=== PATIENT | female | born 1960 | race Caucasian/White ===

== ENCOUNTER 2018-01-31 18:09 | Observation (INO) | payer BC, SELFPAY ==
[2018-01-31 19:08] LABS: #Eosinphils 0.2 thou/uL (0.0-0.7); #Lymphocytes 2.7 thou/uL (1.20-3.40); #Monocytes 0.7 thou/uL (0.11-0.59); #Neutrophils 7.4 thou/uL (1.40-6.50); %Basophils 0.3 % (0.0-1.0); %Eosinophils 1.5 % (0.0-10.0); %Lymphocytes 24.7 % (21.0-51.0); %Neutrophils 67.5 % (42.0-75.0); Hemoglobin 14.7 g/dL (12.0-16.0); Mean Corpuscular Hemoglobin 29.9 pg (27.0-31.0); Mean Corpuscular Volume 90.5 fl (81.0-99.0); Mean Platelet Volume 7.4 fL (7.4-10.4); Platelet Count 308 thou/uL (130-400); RBC Distribution Width 12.7 % (11.5-14.5); Red Blood Cell (RBC) Count 4.91 mill/uL (4.20-5.40)
[2018-01-31 19:29] LABS: ALT (SGPT) 29 U/L (8-55); AST (SGOT) 21 U/L (5-34); Alkaline Phosphatase 106 U/L (40-150); Anion Gap 10 mmol/L (10-20); BUN (Urea Nitrogen) 21 mg/dL (9.8-20.1); Bilirubin, Total 0.3 mg/dL (0.2-1.2); Calc. Creatinine Clearance 0 mL/min (70-130); Calcium 9.5 mg/dL (7.8-10.44); Carbon Dioxide 24 mmol/L (22-29); Chloride 110 mmol/L (98-107); Estimated GFR-MDRD 81; Globulin 2.8 g/dL (2.4-3.5); Glucose 102 mg/dL (70-105); Potassium 4.1 mmol/L (3.5-5.1); Protein, Total 6.8 g/dL (6.0-8.3); Sodium 140 mmol/L (136-145)
[2018-01-31 19:48] LABS: Bilirubin Negative (Negative); Blood, Urine Small (Negative); Clarity CLOUDY (Clear); Glucose, Urine (Dipstick) Negative (Negative); Leukocyte Negative (Negative); Nitrite Negative (Negative); Protein, Urine (Dipstick) Negative (Neg-Trace); Urobilinogen 0.2 mg/dL (0.2-1.0)
[2018-01-31 19:51] LABS: Bacteria/HPF None Seen HPF (None Seen); Hyaline Casts/LPF 0-3 HYALINE CAST LPF (0-3 Hyaline); Squamous Epithelial 0-3 HPF (0-3); WBC/HPF 0-3 HPF (0-3)
[2018-01-31] MEDS ORDERED: Ketorolac Tromethamine 60 MG/2 ML VIAL ONE (21:20)
[2018-01-31] MEDS ORDERED: Ketorolac Tromethamine 30 MG/ML VIAL ONE (21:40)
[2018-01-31] MEDS ORDERED: Fentanyl 100 MCG/2 ML VIAL ONE (22:29)
[2018-01-31] MEDS ORDERED: cloNIDine 0.1 MG TAB ONE (23:03)
--- NOTE | 2018-01-31 23:18 | ULT ---
RENAL ULTRASOUND 01/31/18 HISTORY: Left flank pain. Multiple renal calculi. Multiple longitudinal and transverse images of the kidneys and bladder is obtained using a multihertz curvilinear transducer. Real time and color flow images are obtained. Images demonstrate the right kidney to be of normal contour, axis and size measuring 11.2 cm from alen e to pole. No evidence of right sided hydroureteronephrosis seen. The left kidney is severely hydronephrotic with marked dilatation of the left renal pelvis and calyce s. No evidence of a left ureteral jet seen in the urinary bladder. This is concerning for an obstruct ing left ureteral calculus. The left renal parenchyma is otherwise unremarkable. The urinary bladder is unremarkable except for absence of left ureteral jets. IMPRESSION: Left sided hydronephrosis with absent left ureteral jets. POS: BRENNON
[2018-02-01] MEDS ORDERED: Ondansetron ODT 4 MG TAB PO PRN (00:42)
[2018-02-01] MEDS ORDERED: Ondansetron HCl/PF 4 MG/2 ML Vial IVP PRN ×2 (00:42→11:39)
[2018-02-01] MEDS ORDERED: Calcium Carbonate 500 MG ChewTAB PO PRN (00:42)
[2018-02-01] MEDS ORDERED: Promethazine HCl 25 MG/ML VIAL IM/IV PRN (00:42)
[2018-02-01] MEDS ORDERED: Acetaminophen 325 MG TAB PO PRN (00:42)
[2018-02-01] MEDS ORDERED: Bisacodyl 5 MG TAB PO PRN (00:42)
[2018-02-01] MEDS ORDERED: Sodium Chloride 0.9% 1,000 ML IV SCH ×2 (00:45→01:00)
--- NOTE | 2018-02-01 00:51 | PDOC.FPRHP ---
- History of Present Illness Chief Complaint: renal colic History of Present Illness: PCP: Luanne Alanis-OOT Code Status: Full 57 yo F w/ PMH of HTN, DMII, anxiety and numerous previous nephrolithiasis with approx 6-7 previous lithotipsy precedures performed presented to the ED with cc of back/flank pain. She has had numerous obstructing stones on the past and has experienced similar symptoms before. She is aware of renal lithiasis on the left side, but they have not been an issue until yesterday. She describes the pain as the same as other episodes of renal colic and only relieved by toradol and fentanyl. She attempted to take [place] at home for pain control, but the pain did no subside. In the ED a renal US showed absence or ureteral jet in the left kidney and a ct stone protocol is pending. Urology was consulted from the ED. She had one episode of nausea, otherwise she denies diarrhea, vomiting, fever, chills, cp, sob, headache, dysuria and hematuria. ED Course: Toradol, fentanyl, clonidine - Allergies/Adverse Reactions Allergies Allergy/AdvReac Type Severity Reaction Status Date / Time No Known Drug Allergies Allergy Verified 02/01/18 01:25 - Home Medications Medication Instructions Recorded Confirmed Type Citalopram [CeleXA] 20 mg PO DAILY 02/01/18 02/01/18 History Lisinopril [Lisinopril] 02/01/18 History - History PMHx: HTN, DMII, Nephrolithiasis PSHx: Left shoulder, farzaneh, appy, hyst, csection X2, hemithyroidectomy FHx:Paternal DC, DMII, CVA. Maternal heart disease Social:Denies tobacco, social alcohol, regular marijuana use - Review of Systems General: denies: fever/chills, night sweats, fatigue Eyes: denies: eye pain, vision changes ENT: denies: nasal congestion, rhinorrhea Respiratory: denies: cough, congestion, shortness of breath Cardiovascular: denies: chest pain, palpitation, edema Gastrointestinal: reports: nausea. denies: vomiting, diarrhea, constipation, abdominal pain Genitourinary: reports: other (Flank pain). denies: dysuria Skin: denies: rashes, lesions Musculoskeletal: reports: pain. denies: stiffness, swelling, arthritis/ arthralgias Neurological: denies: numbness, syncope - Vital signs BP: 191/111 HR: 80 RR: 18 Tmax: 98.4 Pox: 97% on RA Wt: 129Kg - Physical Exam Constitutional: NAD, awake, alert and oriented HEENT: normocephalic and atraumatic, PERRLA, EOMI, conjunctiva clear, no scleral icterus, grossly normal vision, grossly normal hearing, MMM, oropharynx clear Neck: supple, FROM, trachea midline, no LAD, no JVD, no thyromegaly, no bruits Heart: RRR, normal S1/S2, no murmurs/rubs/gallops, pulses present, no edema Lungs: CTAB, no respiratory distress, good air movement, no rales/rhonchi, no wheezing Abdomen: soft, non-tender, bowel sounds present, other (No CVA tenderness) Musculoskeletal: normal structure, normal tone Neurological: no focal deficit, normal sensation Skin: no rash/lesions, capillary refill <2 seconds Heme/Lymphatic: no unusual bruising or bleeding, no petechia FMR H&P: Results - Labs Result Diagrams: 01/31/18 18:56 01/31/18 18:56 Lab results: WBC 11.0 thou/uL (4.8-10.8) H 01/31/18 18:56 Hgb 14.7 g/dL (12.0-16.0) 01/31/18 18:56 Hct 44.4 % (36.0-47.0) 01/31/18 18:56 MCV 90.5 fl (81.0-99.0) 01/31/18 18:56 Plt Count 308 thou/uL (130-400) 18 18:56 Neutrophils % 67.5 % (42.0-75.0) 18 18:56 Sodium 140 mmol/L (136-145) 01/31/18 18:56 Potassium 4.1 mmol/L (3.5-5.1) 01/31/18 18:56 Chloride 110 mmol/L (98-107) H 01/31/18 18:56 Carbon Dioxide 24 mmol/L (22-29) 01/31/18 18:56 BUN 21 mg/dL (9.8-20.1) H 01/31/18 18:56 Creatinine 0.74 mg/dL (0.6-1.1) 18 18:56 Glucose 102 mg/dL (70-105) 01/31/18 18:56 Calcium 9.5 mg/dL (7.8-10.44) 18 18:56 Total Bilirubin 0.3 mg/dL (0.2-1.2) 18 18:56 AST 21 U/L (5-34) 01/31/18 18:56 ALT 29 U/L (8-55) 01/31/18 18:56 Alkaline Phosphatase 106 U/L (40-150) 01/31/18 18:56 Serum Total Protein 6.8 g/dL (6.0-8.3) 01/31/18 18:56 Albumin 4.0 g/dL (3.5-5.0) 01/31/18 18:56 Urine Ketones Negative mg/dL (Negative) 01/31/18 19:39 Urine Blood Small (Negative) H 01/31/18 19:39 Urine Nitrite Negative (Negative) 01/31/18 19:39 Ur Leukocyte Esterase Negative (Negative) 01/31/18 19:39 Urine RBC 7-10 HPF (0-3) H 01/31/18 19:39 Urine WBC 0-3 HPF (0-3) 01/31/18 19:39 Ur Squamous Epith Cells 0-3 HPF (0-3) 01/31/18 19:39 Urine Bacteria None Seen HPF (None Seen) 01/31/18 19:39 - Radiology Interpretation US - abdomen Status: report reviewed by me (Absence of left ureteral jet flow. Left hydronephrosis) FMR H&P: A/P - Problem List (1) Nephrolithiasis Current Visit: Yes Status: Acute (2) Hydronephrosis Current Visit: Yes Status: Acute Code(s): N13.30 - UNSPECIFIED HYDRONEPHROSIS (3) HTN (hypertension) Current Visit: Yes Status: Acute Code(s): I10 - ESSENTIAL (PRIMARY) HYPERTENSION (4) DMII (diabetes mellitus, type 2) Current Visit: Yes Status: Acute (5) Anxiety Current Visit: Yes Status: Acute Code(s): F41.9 - ANXIETY DISORDER, UNSPECIFIED - Plan 1) Nephrolithiasis: Present on ct with evidence of Lt hydronephrosis, official read pending. Urology has been consulted from ED, appreciate recs -Pt will be admitted to surgical floor. Pain control with toradol and prn morphine. Zofran and phenergan for n/v. Tylenol for mild pain. Pt NPO. IVF NS @ 125mls/hr 2) Hydronephrosis: 2/2 #1. See #1 3)HTN: Home meds 4) DMII: Per pt diet controlled. CC diet after urology evaluation 5)Anxiety: Home meds 6) PPX: SCDs and pepcid for dvt and GI ppx, resepctively 7)Code status: Pt wishes to be full code Disposition/LOS: stable, </= 2 days FMR H&P: Upper Level - Pertinent history Kim Lundy is a 57 year old female with a history of recurrent calcium renal stones who presents to the ED with sudden onset left flank pain lasting several hours. She has had multiple lithotripsies in the past and saw a urologist in [place]. - Pertinent findings General: NAD HEENT: EOMI, moist mucous membranes. Heart: RRR, no MRG Lungs: CTAB Back: no CVA tenderness Extremities: moves all extremities well; no edema UA: microscopic hematuria Renal US: left hydronephrosis with absent left ureteral jets. - Plan Date/Time: 02/01/1850 She Arteaga, have evaluated this patient and agree with findings/plan as outlined by commissioner of internal revenue resident. Pertinent changes/additions are listed here. 57 year old female with recurrent calcium renal stones who presents with left obstructing ureteral stone. 1. Left obstructing ureteral stone - no evidence of infection; vitals stable - Urology consulted from ED. - IV fluids, pain control. NPO after midnight 2.Hypertension - home meds unavailable, will restart when available 3.Depression - home meds unavailable. will restart when available
[2018-02-01] MEDS: Ketorolac Tromethamine 30 MG/ML VIAL IVP PRN ×2 (01:19→14:35)
[2018-02-01 01:29] VITALS: BMI 44.5
[2018-02-01 04:50] LABS: #Eosinphils 0.2 thou/uL (0.0-0.7); #Lymphocytes 2.4 thou/uL (1.20-3.40); #Monocytes 0.5 thou/uL (0.11-0.59); #Neutrophils 4.6 thou/uL (1.40-6.50); %Basophils 0.5 % (0.0-1.0); %Eosinophils 2.4 % (0.0-10.0); %Lymphocytes 30.9 % (21.0-51.0); %Neutrophils 60.2 % (42.0-75.0); Hemoglobin 13.1 g/dL (12.0-16.0); Mean Corpuscular HGB CONC 32.9 g/dL (32.0-36.0); Mean Corpuscular Hemoglobin 29.8 pg (27.0-31.0); Mean Corpuscular Volume 90.8 fl (81.0-99.0); Mean Platelet Volume 7.3 fL (7.4-10.4); Platelet Count 261 thou/uL (130-400); RBC Distribution Width 12.7 % (11.5-14.5); Red Blood Cell (RBC) Count 4.41 mill/uL (4.20-5.40); White Blood Cell (WBC) Count 7.7 thou/uL (4.8-10.8)
[2018-02-01 05:01] LABS: Anion Gap 10 mmol/L (10-20); BUN (Urea Nitrogen) 15 mg/dL (9.8-20.1); Calc. Creatinine Clearance 191 mL/min (70-130); Calcium 8.6 mg/dL (7.8-10.44); Carbon Dioxide 26 mmol/L (22-29); Chloride 109 mmol/L (98-107); Estimated GFR-MDRD Greater than 90; Glucose 114 mg/dL (70-105); Potassium 3.7 mmol/L (3.5-5.1); Sodium 141 mmol/L (136-145)
[2018-02-01] MEDS: Sodium Chloride 0.9% 1,000 ML IV SCH ×2 (07:50→13:56)
[2018-02-01] MEDS ORDERED: Tamsulosin HCl 0.4 MG CAP PO SCH (09:00)
[2018-02-01] MEDS ORDERED: Hydrochlorothiazide 25 MG TAB PO SCH ×2 (09:00)
[2018-02-01] MEDS ORDERED: Famotidine 20 MG TAB PO SCH (09:00)
[2018-02-01] MEDS ORDERED: Citalopram 20 MG TAB PO SCH (09:00)
[2018-02-01] MEDS ORDERED: Fentanyl 100 MCG/2 ML VIAL ONE (11:53)
[2018-02-01] MEDS ORDERED: Ondansetron HCl/PF 4 MG/2 ML Vial ONE ×2 (11:53→15:23)
[2018-02-01] MEDS ORDERED: Iothalamate Meglumine 60% 50 ML VIAL FS ONE (11:57)
--- NOTE | 2018-02-01 11:59 | CT ---
PRELIMINARY REPORT/[facility]/EMERGENTY AFTER-HOURS PROCEDURE CT Abdomen and Pelvis Without Intravenous Contrast EXAM DATE/TIME: Exam ordered 02/01/2018 12:43 AM CLINICAL HISTORY: 57 years old, female; Pain; Abdominal pain; Flank; Left; Prior surgery; Patient HX: F57 presents to e d C/O l. Flank pain. HX of multiple stones, 5-6 lithotripsies for them. Stones have been up to 17mm i n diameter. Onset of pain at 2: 30pm today, severe in nature. Pt took narco at home that did not relieve SX TECHNIQUE: Axial computed tomography images of the abdomen and pelvis without intravenous contrast. Coronal refo rmatted images were created and reviewed. COMPARISON: No relevant prior studies available. FINDINGS: Lung bases: Unremarkable. No mass. No consolidation. ABDOMEN: Liver: Unremarkable. Gallbladder and bile ducts: Prior cholecystectomy. No ductal dilation. Pancreas: Unremarkable. No ductal dilation. Spleen: Unremarkable. No splenomegaly. Adrenals: Left adrenal adenoma. Kidneys and ureters: 3 mm obstructing stone in the distal left ureter causing moderate obstructive ur opathy. Nonobstructive nephrolithiasis right kidney. Stomach and bowel: No bowel wall thickening or intestinal obstruction. PELVIS: Appendix: Appendix not visualized. No evidence of appendicitis. Bladder: Unremarkable. No stones. Reproductive: Prior hysterectomy. ABDOMEN and PELVIS: Intraperitoneal space: Unremarkable. No free air. No significant fluid collection. Bones/joints: No acute fracture. No dislocation. Soft tissues: Unremarkable. Vasculature: Unremarkable. No abdominal aortic aneurysm. Lymph nodes: Unremarkable. No enlarged lymph nodes. IMPRESSION: 3 mm obstructing stone in the distal left ureter causing moderate obstructive uropathy. Thank you for allowing us to participate in the care of your patient. Dictated and Authenticated by: Tre Juárez MD 02/01/2018 12:56 AM Central Time ([place] & [place]) FINAL REPORT EMERGENCY AFTER HOURS CT ABDOMEN AND PELVIS PERFORMED WITHOUT CONTRAST ENHANCEMENT: Date: 02/01/18 HISTORY: Left flank pain. FINDINGS: The lung bases are clear. Old left rib fractures are seen. The liver, spleen, and pancreas show no focal abnormalities. Gallbladder has been removed. There is s uggestion of fatty changes of the liver. Right and left adrenal glands are normal in appearance. Right and left kidneys are normal in size. Th ere is a faint mid pole nonobstructing right renal calculus and a 2-3 mm lower pole renal calculus. O n the left side, there is left-sided hydronephrosis and hydroureter related to a 2-3 mm calculus whic h is located a few centimeters proximal to the ureterovesical junction. There is no significant peria ortic or mesenteric adenopathy. CT of pelvis performed without contrast enhancement. No adenopathy, mass, or free fluid. Appendix reg ion appears unremarkable. IMPRESSION: 1. Punctate nonobstructing right renal calculi. 2. 2-3 mm distal left ureteral calculus located a few centimeters proximal to the left ureterovesica l junction with associated left-sided hydronephrosis and hydroureter. This report is in agreement with the preliminary report issued by [facility]. POS: BRENNON
[2018-02-01 12:10] LABS: Bilirubin Negative (Negative); Blood, Urine Negative (Negative); Clarity CLEAR (Clear); Glucose, Urine (Dipstick) Negative (Negative); Leukocyte Negative (Negative); Nitrite Negative (Negative); Protein, Urine (Dipstick) Negative (Neg-Trace); Specific Gravity, Urine 1.006 (1.002-1.036); Urobilinogen 0.2 mg/dL (0.2-1.0)
--- NOTE | 2018-02-01 12:10 | CON ---
DATE OF CONSULTATION: 02/01/2018 REFERRING: Hospitalist. HISTORY OF PRESENT ILLNESS: Ms. Lundy is a pleasant 57-year-old morbidly obese female with history of recurrent kidney stone. The patient has undergone previous lithotripsy, stent placement approximately 6 to 7 times. She often travels in many places due to her 's work. She presented to the emergency room last night due to intractable pain. As she has had multiple CTs per the ER physician, ER physician elected to perform a renal ultrasound instead of a CT scan. Renal ultrasound demonstrated severe left hydronephrosis with no evidence of ureteral jet. I advised re CT stone protocol. The patient currently doing well with pain medication. She presented with pain 10/ 10 on the pain scale. Currently, denies nausea, vomiting, fever, resting comfortably. PAST MEDICAL HISTORY: Hypertension, type 2 diabetes, recurrent kidney stones. PAST SURGICAL HISTORY: Shoulder surgery, cholecystectomy, appendectomy, hysterectomy, , and hemithyroidectomy. Stent placement at least 2 times, shockwave lithotripsy 6-7 times FAMILY HISTORY: Positive for CVA, heart disease. SOCIAL HISTORY: Denies tobacco abuse, regular marijuana use. REVIEW OF SYSTEMS: Ten-point review of systems as above, otherwise noncontributory. PHYSICAL EXAMINATION: VITAL SIGNS: Stable, afebrile. LABORATORY DATA: White count on presentation is 11, currently 7. Platelet 261. Her renal function stable at 0.6. Urinalysis is grossly unremarkable except 7-10 RBCs with no evidence of bacteriuria and nitrite negative. Renal ultrasound performed in the ER demonstrates severe left hydronephrosis with no evidence of left ureteral jet. CT demonstrates left hydroureteronephrosis due to a 3 mm left distal ureteral calculi at the level of the S3/4 Right kidney demonstrates punctate lower pole renal calcific density. IMPRESSION/PLAN: Ms. Lundy is a 57-year-old morbidly obese female with history of recurrent kidney stones. Renal ultrasound demonstrated no evidence of ureteral jet. Although the stone is small, due to high-grade obstruction advised regarding stent placement. The patient states that she has difficulty tolerating stent; however, I informed the patient that due to high-grade obstruction, although small stone size, the stent would be moss. She agrees. As her urinalysis demonstrates no bacteria, I informed the patient that we can try to do a ureteroscopy with balloon dilatation to extract the stone; however, if I am unable to access the stone, stent will be left in situ for staged intervention. She verbalizes understanding and desires to proceed. Risks and complications including bleeding, pain, infection, urosepsis, injury to adjacent organs, ureteral renal injury reviewed. SHREYA
[2018-02-01 12:12] LABS: Bacteria/HPF None Seen HPF (None Seen); Hyaline Casts/LPF 0-3 HYALINE CAST LPF (0-3 Hyaline); RBC/HPF 0-3 HPF (0-3); Squamous Epithelial None Seen HPF (0-3); WBC/HPF None Seen HPF (0-3)
[2018-02-01] MEDS ORDERED: Oxybutynin 5 MG TAB PO PRN (13:01)
[2018-02-01] MEDS ORDERED: Phenazopyridine HCl 97.5 MG TABLET PO PRN (13:02)
--- NOTE | 2018-02-01 13:40 | OP ---
DATE OF SERVICE: 02/01/2018 PREOPERATIVE DIAGNOSIS: A 57-year-old female with history of recurrent kidney stones, left distal 3 mm stone with high-grade obstruction. POSTOPERATIVE DIAGNOSIS: A 57-year-old female with history of recurrent kidney stones, left distal 3 mm stone with high-grade obstruction. PROCEDURE: Cystoscopy, left 6 x 26 double-J ureteral stent with distal dangler taped to pubic symphysis, balloon dilation of the left distal ureter, basket extraction of stone, rigid ureteroscopy SURGEON: Olga Lidia Noguera D.O. ANESTHESIA: General. COMPLICATIONS: None apparent. DISPOSITION: Recovery room in stable condition. INDICATIONS FOR THE PROCEDURE AND HISTORY: Ms. Lundy is a 57-year-old female with recurrent kidney stones who presented to the emergency room due to left flank pain, intractable. Renal ultrasound demonstrated no significant left ureteral jet, therefore I advised CT, demonstrating a 3 mm distal ureteral stone. Although the stone is small, given ultrasound demonstrating no significant ureteral jet, I advised patient regarding cystoscopy, stent placement. As her UA was grossly unremarkable for bacteria, I discussed with options regarding balloon dilatation and stone extraction if possible given its small size and distal nature. Possibility of secondary procedure was reviewed with the patient in detail and all questions were answered. Risks and complications including, but not limited to, bleeding, pain , infection, stricture formation, ureteral and renal bladder injury reviewed. She desired to proceed without reservation. DESCRIPTION OF THE PROCEDURE: After an informed consent is signed, the patient is taken to the operating room, placed in a dorsolithotomy position with the genital area prepped and draped in the usual surgical sterile fashion. A 22- Trin[place] cystoscope was utilized for cystoscopy. Bladder was entered which demonstrated unremarkable bladder mucosa. The left UO was identified and using a 5-Trinidadian open-ended catheter, we passed a 0.35 Sensor wire to the level of the left upper pole. Using a [employer] 4 cm 12-Trinidadian balloon dilator, we dilated the intramural ureter with ease. I subsequently passed a rigid ureteroscope under direct visualization. At the area of the stone obstruction, there was bullous edema consistent with obstructive stone just proximal to this , I was able to visualize the stone. We basket extracted the stone and negotiated it distally complete. This was extracted with no significant trauma. She tolerated the procedure well. A 6 x 26 double-J ureteral stent with distal dangler was placed without difficulty. This was taped to the patient's pubic symphysis. Patient will go back to the floor, I anticipate the patient to be discharged this afternoon. She will follow up with me next week for stent pull on dangler. SHREYA
--- NOTE | 2018-02-01 14:42 | RAD ---
RETROGRADE PYELOGRAM 1 VIEW: Date: 02/01/18 HISTORY: Stent placement. FINDINGS: Left ureteral stent has been placed which appears to be in good position. IMPRESSION: Left ureteral stent in place. POS: BRENNON
[2018-02-01] MEDS ORDERED: Dexamethasone 20 MG/5 ML VIAL ONE (15:23)
[2018-02-01] MEDS ORDERED: Glycopyrrolate 0.2 MG/ML 5 ML SYRINGE ONE (15:23)
[2018-02-01] MEDS ORDERED: PHENYLEPHRINE-NS 100 MCG/ML 10 ML SYRINGE ONE (15:23)
[2018-02-01] MEDS ORDERED: PROPOFOL 200 MG/20 ML VIAL ONE (15:23)
[2018-02-01] MEDS ORDERED: Lidocaine 1% PF 5 ML VIAL ONE (15:23)
[2018-02-01 16:09] VITALS: BP 143/88; TEMP 98.1
[2018-02-01] MEDS ORDERED: Docusate 100 MG CAP PO SCH (21:00)
--- NOTE | 2018-02-02 01:30 | DIS ---
The patient was admitted for 23-hour observation. BRIEF HOSPITAL COURSE: Ms. Lundy is a pleasant 57-year-old female with history of recurrent kidney stones. She presented to the emergency room last night due to intractable discomfort, found to have high-grade left hydronephrosis with no significant ureteral jet from the left kidney. CT demonstrated a small stone 3 mm in the distal ureter. The patient underwent cysto right ureteroscopy stone extraction without issues, stent was placed and dangler taped the patient's pubic symphysis. The patient is checked on postop rounds, she is eating, pain is adequately controlled, and feels comfortable to go home. DISCHARGE MEDICATIONS: Include [place] 5/325 #50, Colace p.r.n., ciprofloxacin for 5 days, Azo over the counter p.r.n. dysuria, oxybutynin 10 mg XL 1 p.o. q. day for bladder spasms. FOLLOW-UP: Next 02/06/2018 at 10:00 a.m. for stent pull on dangler. ACTIVITY: No heavy lifting, strenuous activity. No intercourse was advised, no baths. DISPOSITION: Home to self-care. CONDITION: Stable. MTDD
--- NOTE | 2018-02-02 14:04 | ADD-HP ---
Please see the note from Dr. Madera, for which I concur. The patient was seen, evaluated, examined, and discussed with the residents by bedside. HISTORY OF PRESENT ILLNESS: This is a 57-year-old female with a history of hypertension and diabetes , who has had numerous kidney stones before. She states that there are calcium oxalate stones. Has had numerous bouts of lithotripsy, mostly in [place]. New to the area. Has not seen an urologist around here, but comes in with pretty classic left flank pain and evidence on ultrasound of hydroneph rosis, so likely kidney stones, and she states this is typical for her. Pain is actually better cont rolled overnight. No fever. PAST MEDICAL HISTORY, PAST SURGICAL HISTORY, FAMILY HISTORY, SOCIAL HISTORY, AND REVIEW OF SYSTEMS: All per the resident's history and physical, for which I concur. PHYSICAL EXAMINATION: VITAL SIGNS: Initial blood pressure was elevated, but came down. GENERAL: Obese. No apparent distress. Pleasant. ENT: Within normal limits. NECK: No lymphadenopathy or JVD. CHEST: Clear. CARDIOVASCULAR: Regular rate and rhythm. ABDOMEN: Benign. No CVA tenderness currently. EXTREMITIES: Show no edema. LABORATORY AND X-RAY FINDINGS: Labs reviewed, fairly benign, and again hydronephrosis on the left on ultrasound and CT. ASSESSMENT AND PLAN: Left-sided kidney stone. We will consult Urology right now, added Flomax, pain management, and IV fluids. Follow creatinine and we will likely add hydrochlorothiazide if this joselyn lly is the calcium oxalate stone. Otherwise, continue home medications and we will see if we can get her some pain control through Urology, things need to happen based on this current stone.
== END 2018-02-01 17:15 | disposition home or self-care (01) ==
LOC: ERS 18:09 → SURG A 02-01 00:57
PROVIDERS: ADMIT Family Medicine; ATTEND Family Medicine
PROC: 0TC78ZZ Extirpation of Matter from Left Ureter, Via Natural or Artificial Opening Endoscopic (ICD-10-PCS; principal; 2018-02-01)
PROC: 0T778DZ Dilation of Left Ureter with Intraluminal Device, Via Natural or Artificial Opening Endoscopic (ICD-10-PCS; 2018-02-01)
DX: N13.2 Hydronephrosis with renal and ureteral calculous obstruction (principal); I10 Essential (primary) hypertension; E11.9 Type 2 diabetes mellitus without complications; F41.9 Anxiety disorder, unspecified; F32.9 Major depressive disorder, single episode, unspecified; E66.01 Morbid (severe) obesity due to excess calories; Z68.41 Body mass index [BMI] 40.0-44.9, adult; Z87.442 Personal history of urinary calculi; Z79.899 Other long term (current) drug therapy
CPT/HCPCS: 36415; 74176; 74420; 76770; 80048; 80053; 81001; 81003; 81015; 82365; 85025; 87086; 88300; 96361; 96365; 96374; 96375; 96376; C1758; C1769; G0378; J1100; J1885; J1956; J2001; J2405; J2704; J3010; Q9961